=== PATIENT | male | born 1945 ===

== ENCOUNTER → 2019-09-23 | Emergency (ER) | payer OTHER ==
[~2019-09-23] VITALS: Ht 170.2 cm; Wt 66.7 kg
[~2019-09-23] MED LIST: ABILIFY5 MG; LOSARTAN POTASS50 MG; ULTRACET PO
== END | disposition home or self-care (01) ==
LOC: ER 21:37
DX: K91.841 Postprocedural hemorrhage of a digestive system organ or structure following other procedure (principal)

== ENCOUNTER → 2021-01-07 | Outpatient (CLI) | payer OTHER | END | disposition home or self-care (01) | LOC: SONOGRAMA 09:58 | PROVIDERS: ATTEND Pathology Anatomic Pathology & Clinical Pathology | DX: E04.1 Nontoxic single thyroid nodule (principal) ==